=== PATIENT | female | born 1995 ===

== ENCOUNTER 2017-05-23 16:18 | Emergency (ER) | payer BC ==
[2017-05-23 16:46] VITALS: O2SAT 99
--- NOTE | 2017-05-23 18:13 | ED PDOC ---
HPI: Abdomen Time Seen by Provider: 05/23/17 17:53 Chief Complaint (Nursing): Abdominal Pain Chief Complaint (Provider): pelvic pain History Per: Patient History/Exam Limitations: no limitations Onset/Duration Of Symptoms: Days (2), Gradual Outside of [place] travel?: No Current Symptoms Are (Timing): Still Present Severity: Mild Location Of Pain/Discomfort: Suprapubic, Other (pelvic) Quality Of Discomfort: Cramping Associated Symptoms: Urinary Symptoms. denies: Nausea, Vomiting, Diarrhea, Loss Of Appetite Exacerbating Factors: None Alleviating Factors: None Last Bowel Movement: Today Additional Complaint(s): 21yo female c/o crampy pelvic pain bilateral and suprapubic associated with pressure with urination and clear vaginal discharge. Has Mirena IUD, no menses x2-3 years, denies fever, back pain, weakness, concern for STDs or pain with sexual intercourse. 3yrs ago Past Medical History Reviewed: Historical Data, Nursing Documentation, Vital Signs Vital Signs: Last Vital Signs Temp 98.0 F 05/24/17 00:58 Pulse 77 05/24/17 00:58 Resp 16 05/24/17 00:58 BP 109/65 05/24/17 00:58 Pulse Ox 99 05/24/17 02:17 - Medical History PMH: No Chronic Diseases - Surgical History Surgical History: No Surg Hx - Family History Family History: States: Unknown Family Hx - Living Arrangements Living Arrangements: With Family - Allergies Allergies/Adverse Reactions: Allergies Allergy/AdvReac Type Severity Reaction Status Date / Time No Known Allergies Allergy Verified 05/23/17 16:41 Review of Systems Constitutional: Negative for: Fever, Chills ENT: Negative for: Throat Pain Cardiovascular: Negative for: Chest Pain, Palpitations Respiratory: Negative for: Cough, Shortness of Breath Gastrointestinal: Negative for: Nausea, Vomiting, Constipation, Rectal Pain Genitourinary Female: Positive for: Pelvic Pain. Negative for: Dysuria Musculoskeletal: Negative for: Neck Pain, Back Pain, Leg Pain Skin: Negative for: Rash, Lesions, Jaundice Neurological: Negative for: Weakness, Numbness, Headache Psych: Negative for: Anxiety, Depression Physical Exam - Reviewed Vital Signs Reviewed: Yes - Physical Exam Appears: Positive for: Well, Non-toxic Head Exam: Positive for: ATRAUMATIC Eye Exam: Negative for: Periorbital swelling Cardiovascular/Chest: Negative for: Bradycardia, Tachycardia Respiratory: Negative for: Decreased Breath Sounds Gastrointestinal/Abdominal: Positive for: Tenderness (mild b/l pelvic tenderness ). Negative for: Guarding, Rebound Extremity: Negative for: Tenderness, Deformity Neurologic/Psych: Positive for: Alert, Oriented. Negative for: Motor/Sensory Deficits - Laboratory Results Result Diagrams: 05/23/17 23:56 05/23/17 18:21 Urine POC: Negative Urine dip results: Positive for: Blood (TR). Negative for: Leukocyte Esterase - ECG O2 Sat by Pulse Oximetry: 99 Medical Decision Making Medical Decision Making: workup for pelvic pain initiated UCG neg obtain bloodwork and US pelvis r/o torsion or free fluid labs reviewed chem unremarkable Disposition - Clinical Impression Clinical Impression: Pelvic pain, Hemorrhagic cyst of ovary - Patient ED Disposition Is Patient to be Admitted: Transfer of Care Counseled Patient/Family Regarding: Studies Performed - Disposition Disposition: Transfer of Care Disposition Time: 19:00 Condition: STABLE Additional Instructions: Follow up with your Revolving Inventory Clerk in 1-2 days Abstain from sexual intercourse until Rn Embedded advises otherwise Take Tylenol as needed for pain Return for any worsening in your pain or condition Instructions: Ovarian Cysts Forms: [employer] (Danish), [facility] ED School/Work Excuse Print Language: ALBANIAN Patient Signed Over To: Jonathan Esquivel Handoff Comments: pending US and CBC, dispo/pelvic/re-eval
[2017-05-23 18:38] LABS: BASO # 0.1 K/uL (0.0-0.2); BASO % 0.5 % (0.0-2.0); EOS # 0.3 K/uL (0.0-0.7); EOS % 2.8 % (0.0-4.0); HEMOGLOBIN 13.2 g/dL (12.0-16.0); LYMPH # 2.8 K/uL (1.0-4.3); LYMPH % 22.7 % (20.0-40.0); MEAN CELL VOLUME 86.9 fl (81.0-99.0); MEAN CORPUSCULAR HEMOGLOBIN 28.7 pg (27.0-31.0); MEAN PLATELET VOLUME 9.5 fl (7.2-11.7); MONO # 0.6 K/uL (0.0-0.8); MONO % 5.1 % (0.0-10.0); NEUT # 8.4 K/uL (1.8-7.0); NEUT % 68.9 % (50.0-75.0); NRBC % 0.3 % (0.0-0.0); RBC 4.61 Mil/uL (3.80-5.20); RED CELL DISTRIBUTION WIDTH 12.9 % (11.5-14.5); WHITE BLOOD COUNT 12.3 K/uL (4.8-10.8)
[2017-05-23 18:45] LABS: ALB/GLOB RATIO 1.3 (1.0-2.1); ALBUMIN 4.5 g/dL (3.5-5.0); ALT/SGPT 21 U/L (9-52); AST/SGOT 18 U/L (14-36); BLOOD UREA NITROGEN 15 mg/dl (7-17); CALCIUM 9.5 mg/dL (8.4-10.2); GFR AFRICAN-AMERICAN > 60; GFR NON-AFRICAN AMERICAN > 60
--- NOTE | 2017-05-23 20:16 | ED PDOC ---
- Laboratory Results Result Diagrams: 05/23/17 23:56 05/23/17 18:21 Urine POC: Negative - ECG O2 Sat by Pulse Oximetry: 99 (RA) Pulse Ox Interpretation: Normal Medical Decision Making Medical Decision Making: Time: 19:00 Patient signed out to me by Dr. Pinon pending labs and ultrasound. Pelvic exam presented traces of white discharge. IUD intact, no cervical motion tenderness, and no bleeding. Pelvic exam was performed by HINA Hayward. --22:51 EXAM: US Pelvis Complete, Transabdominal US Pelvis, Transvaginal US Duplex Arterial/Venous of the Pelvis, Complete EXAM DATE/TIME: 05/23/2017 6:06 PM CLINICAL HISTORY: 21 years old, female; Pain; Pelvic pain; there are an IUD, LMP 03/07/15, irregular cycles; negative urine test TECHNIQUE: Real-time transabdominal and transvaginal pelvic ultrasound (complete) with image documentation. Transvaginal imaging was used for better evaluation of the endometrium and adnexa. Real-time duplex ultrasound scan of the arterial and venous flow of the pelvis with color Doppler flow and spectral waveform analysis. COMPARISON: There are no prior studies for comparison. FINDINGS: Uterus/cervix: Uterus is in anteflexed. The uterus measures approximately 8.3 x 3.5 x 4.7 cm. there is shadowing from an IUD. IUD limits evaluation of the endometrium. Visualized portions the endometrium measures approximately 8.5 mm in width. Right ovary: Right ovary measures approximately 3.1 x 1.5 x 2.8 cm. There are multiple small follicles. There is intraovarian blood flow. Left ovary: There is enlargement of the left ovary/left adnexa. Left ovary measures approximately 6 x 4.2 x 4.6 cm. there is an echogenic mass in the substance of the ovary, 2.5 x 2.4 cm.. There are multiple complex cystic areas. There is a 3.7 x 3.1 x 4 cm complex/hemorrhagic cyst. There is flow in the left ovary. Free fluid: There is a large amount of echogenic fluid in the cul-de-sac and pelvis. Bladder: Bladder is partially distended. IMPRESSION: Hemoperitoneum; enlarged left ovary with complex masses suggesting dermoid; hemorrhagic left ovarian cyst; normal-sized uterus with IUD; unremarkable right ovary --23:06 [facility] bilingual sales consultant, who will consult on the case. 00:40 Patient was evaluated for Dr. Staples and requested a repeat hemoglobin, which came back normal at 12.1. Finding was discussed with Dr. Staples and she feels that the patient is stable for discharge home, with instructions to follow up with the patient's OBGYN. Provider has given return precautions. Diagnosis: hemorrhagic ovarian cyst Scribe Attestation: Documented by Thomas Dalton, acting as a scribe for Jonathan Esquivel MD Provider Scribe Attestation: All medical record entries made by the Scribe were at my direction and personally dictated by me. I have reviewed the chart and agree that the record accurately reflects my personal performance of the history, physical exam, medical decision making, and the department course for this patient. I have also personally directed, reviewed, and agree with the discharge instructions and disposition. Disposition - Clinical Impression Clinical Impression: Pelvic pain, Hemorrhagic cyst of ovary - POA Present On Arrival: None - Disposition Disposition: Routine/Home Disposition Time: 00:41 Condition: STABLE Additional Instructions: Follow up with your System Dispatcher in 1-2 days Abstain from sexual intercourse until Acting Section Chief advises otherwise Take Tylenol as needed for pain Return for any worsening in your pain or condition Instructions: Ovarian Cysts Forms: [employer] (Ghanaian), [facility] ED School/Work Excuse Print Language: TRINIDADIAN
[2017-05-23 22:21] LABS: SQUAMOUS EPITHIAL 1 /hpf (0-5); URINE BILIRUBIN NEGATIVE (NEGATIVE); URINE BLOOD NEGATIVE (NEGATIVE); URINE CLARITY CLEAR (Clear); URINE COLOR STRAW (YELLOW); URINE GLUCOSE (UA) NEG (Normal); URINE LEUKOCYTE ESTERASE NEG Leu/uL (Negative); URINE PROTEIN NEGATIVE (NEGATIVE); URINE UROBILINOGEN 0.2-1.0 mg/dL (0.2-1.0)
--- NOTE | 2017-05-23 22:51 | US ---
EXAM: US Pelvis Complete, Transabdominal US Pelvis, Transvaginal US Duplex Arterial/Venous of the Pelvis, Complete EXAM DATE/TIME: 05/23/2017 6:06 PM CLINICAL HISTORY: 21 years old, female; Pain; Pelvic pain; there are an IUD, LMP 03/07/15, irregular cycles; negative urine test TECHNIQUE: Real-time transabdominal and transvaginal pelvic ultrasound (complete) with image documentation. Transvaginal imaging was used for better evaluation of the endometrium and adnexa. Real-time duplex ultrasound scan of the arterial and venous flow of the pelvis with color Doppler flow and spectral waveform analysis. COMPARISON: There are no prior studies for comparison. FINDINGS: Uterus/cervix: Uterus is in anteflexed. The uterus measures approximately 8.3 x 3.5 x 4.7 cm. there is shadowing from an IUD. IUD limits evaluation of the endometrium. Visualized portions the endometrium measures approximately 8.5 mm in width. Right ovary: Right ovary measures approximately 3.1 x 1.5 x 2.8 cm. There are multiple small follicles. There is intraovarian blood flow. Left ovary: There is enlargement of the left ovary/left adnexa. Left ovary measures approximately 6 x 4.2 x 4.6 cm. there is an echogenic mass in the substance of the ovary, 2.5 x 2.4 cm.. There are multiple complex cystic areas. There is a 3.7 x 3.1 x 4 cm complex/hemorrhagic cyst. There is flow in the left ovary. Free fluid: There is a large amount of echogenic fluid in the cul-de-sac and pelvis. Bladder: Bladder is partially distended. IMPRESSION: Hemoperitoneum; enlarged left ovary with complex masses suggesting dermoid; hemorrhagic left ovarian cyst; normal-sized uterus with IUD; unremarkable right ovary
[2017-05-24] LABS: BASO # 0.1 K/uL (0.0-0.2); BASO % 0.7 % (0.0-2.0); EOS # 0.3 K/uL (0.0-0.7); EOS % 2.8 % (0.0-4.0); HEMOGLOBIN 12.1 g/dL (12.0-16.0); LYMPH # 3.3 K/uL (1.0-4.3); LYMPH % 27.6 % (20.0-40.0); MEAN CELL VOLUME 86.8 fl (81.0-99.0); MEAN CORPUSCULAR HEMOGLOBIN 28.8 pg (27.0-31.0); MEAN CORPUSCULAR HGB CONC 33.1 g/dL (33.0-37.0); MEAN PLATELET VOLUME 9.2 fl (7.2-11.7); MONO # 0.7 K/uL (0.0-0.8); MONO % 5.5 % (0.0-10.0); NEUT # 7.7 K/uL (1.8-7.0); NEUT % 63.4 % (50.0-75.0); RBC 4.2 Mil/uL (3.80-5.20); RED CELL DISTRIBUTION WIDTH 12.6 % (11.5-14.5); WHITE BLOOD COUNT 12.1 K/uL (4.8-10.8)
--- NOTE | 2017-05-24 00:24 | ED PDOC ---
HPI: General Adult Time Seen by Provider: 05/23/17 17:53 Chief Complaint (Nursing): Abdominal Pain Additional Complaint(s): FRIT BURNER CONSULT NOTE: 21 y/o F presented to ED c/o pelvic pain. Pt reports pain is cramping, began yesterday at 8 pm as tolerable, was able to sleep and decided to come to ED because pain became 6/10 intensity. Pt has an IUD in place but assures her LMP was 3 weeks ago because she can feel some pre-menstrual symptoms. Pt reports having intersourse yesterday before onset of pain. No urinary complaints, vaginal bleeding or vagina discharge reported. All systems reviewed and negative except as above. OB Hx: , no Hx of abortions. Bill Hiker Hx: IUD in place. NKDA Meds: None PMHx: denied PSHx: Breast Augmentation. FHx: NC SHx: denies tobacco, alcohol or rec drugs. ED Course: --CBC, CMP and Urinalysis was unremarkable. --Pelvis TVUS showed hemoperitoneum, enlarged L ovary with complex masses suggesting dermoid; hemorrhagic L ovarian cyst; normal-sized uterus with IUD; unremarkable R ovary. --Speculum exam performed by ED staff, unremarkable. Past Medical History Vital Signs: Last Vital Signs Temp 98.0 F 05/24/17 00:58 Pulse 77 05/24/17 00:58 Resp 16 05/24/17 00:58 BP 109/65 05/24/17 00:58 Pulse Ox 99 05/24/17 01:01 - Medical History PMH: No Chronic Diseases - Surgical History Surgical History: No Surg Hx - Family History Family History: States: Unknown Family Hx - Allergies Allergies/Adverse Reactions: Allergies Allergy/AdvReac Type Severity Reaction Status Date / Time No Known Allergies Allergy Verified 05/23/17 16:41 Review of Systems Constitutional: Negative for: Fever, Chills ENT: Negative for: Nose Congestion Cardiovascular: Negative for: Chest Pain, Palpitations Respiratory: Negative for: Cough, Shortness of Breath Gastrointestinal: Negative for: Nausea, Vomiting Genitourinary Female: Positive for: Pelvic Pain. Negative for: Dysuria, Frequency, Incontinence, Vaginal Discharge, Vaginal Bleeding Psych: Negative for: Anxiety, Depression Physical Exam - Physical Exam Appears: Positive for: Well, No Acute Distress Head Exam: Positive for: ATRAUMATIC, NORMAL INSPECTION Neck: Positive for: Normal, Painless ROM, Supple Respiratory: Negative for: Accessory Muscle Use, Respiratory Distress Gastrointestinal/Abdominal: Positive for: Soft. Negative for: Tenderness, Organomegaly Pelvic Exam: Positive for: Other (Pelvic exam: No cervical motion tenderness, no traces of bleeding appreciated, IUD strings present, external genitalia normal mature female. ). Negative for: Blood, Discharge Neurologic/Psych: Positive for: Alert, Oriented - Laboratory Results Result Diagrams: 05/23/17 23:56 05/23/17 18:21 Urine POC: Negative - ECG O2 Sat by Pulse Oximetry: 99 (RA) Medical Decision Making Medical Decision Making: A/P: 21 y/o F with pelvic pain, with hemorrhagic L ovarian cyst and dermoid mass. --Repeated CBC was unremarkable, Vital signs remained stable and WNL. --Pt educated and counseled on the surgical approach for dermoid cyst. --Pt instructed to f/u with her OBGYN. Appointment set for 06/07/17. Pt advised to see her OBGYN sooner if aggravating pain, fever, N/V. --ER precautions discussed. --Pt advised to rest for the next 2 days. Excuse for work provided to patient. Case discussed with Dr Staples, OB epic application coordinator. Vitaliy PGY-1. Disposition - Clinical Impression Clinical Impression: Pelvic pain, Hemorrhagic cyst of ovary - Disposition Disposition: Transfer of Care Disposition Time: 19:00 Condition: STABLE Additional Instructions: Follow up with your Cleaning Attendant in 1-2 days Abstain from sexual intercourse until Bill Hiker advises otherwise Take Tylenol as needed for pain Return for any worsening in your pain or condition Instructions: Ovarian Cysts Forms: [employer] (Uzbek), [facility] ED School/Work Excuse Print Language: MAORI
[2017-05-24 00:30] VITALS: RESP 16
[2017-05-24 00:59] VITALS: BP 109/65; PULSE 77; TEMP 98
== END 2017-05-24 01:00 | disposition home or self-care (01) ==
LOC: H.ER 16:18
DX: N83.202 Unspecified ovarian cyst, left side (principal); Z97.5 Presence of (intrauterine) contraceptive device
CPT/HCPCS: 76830; 76856; 80053; 81003; 81025; 85025; 87070; 87491; 87591; 96374; 99282; J1885

== ENCOUNTER 2018-07-26 06:46 | Day surgery (SDC) | payer OTHER ==
[2018-07-26 06:56] VITALS: BMI 19.7
[2018-07-26 07:04] VITALS: O2SAT 100
[2018-07-26] MEDS ORDERED: Lactated Ringer's 1,000 ML IV ONE (07:18)
[2018-07-26] MEDS ORDERED: ePHEDrine 50 mg/ml Inj ONE (07:26)
[2018-07-26] MEDS ORDERED: Propofol 10 mg/ml Inj (20 ML) ONE (07:26)
[2018-07-26] MEDS ORDERED: Lidocaine 4% (Laryng-O-Jet) Kit MM ONE (07:27)
[2018-07-26] MEDS ORDERED: Succinylcholine 200 mg/10 ml Inj IV ONE (07:27)
[2018-07-26] MEDS ORDERED: Midazolam 2 MG/2 ML VIAL ONE (07:27)
[2018-07-26] MEDS ORDERED: Dexamethasone 4 mg/1 ml ONE (08:28)
[2018-07-26] MEDS ORDERED: HYDROmorphone 0.5 mg/0.5 ml ISec IVP PRN (09:02)
[2018-07-26] MEDS ORDERED: DiphenhydrAMINE 50 mg/ml Inj IVP PRN (09:02)
[2018-07-26] MEDS ORDERED: Lactated Ringer's 1,000 ML IV SCH (09:15)
[2018-07-26 09:32] VITALS: RESP 20
--- NOTE | 2018-07-26 10:10 | CP.SDSHP ---
Same Day Surgery H & P - Allergies Allergies: Allergies No Known Allergies Allergy (Verified 07/26/18 06:56) - Physical Exam Vital Signs: Vital Signs 07/26/18 07/26/18 07/26/18 07:02 07:06 08:59 Temperature 97.9 F 96.9 F L Pulse Rate 72 72 87 Respiratory 18 18 Rate Blood Pressure 106/61 144/96 H O2 Sat by Pulse 100 100 Oximetry 07/26/18 07/26/18 07/26/18 09:15 09:30 09:45 Temperature 96.8 F L 96.9 F L 96.9 F L Pulse Rate 92 H 95 H 101 H Respiratory 18 20 20 Rate Blood Pressure 140/77 127/90 127/92 H O2 Sat by Pulse 100 100 100 Oximetry Short Stay Discharge - Short Stay Discharge Admitting Diagnosis/Reason for Visit: T83.32XD Disposition: HOME/ ROUTINE Referrals: Melissa Grimes MD [Primary Care Provider] - Progress Note/Discharge Note with Instructions: Patient doing well cleared for discharge F/u in one week
[2018-07-26 12:12] VITALS: BP 115/65; PULSE 101; TEMP 97.5
--- NOTE | 2018-07-26 20:07 | OP ---
PROCEDURE DATE: 07/26/2018 PREOPERATIVE DIAGNOSIS: Retained intrauterine device. The patient was unable to tolerate the procedure in the office, the strings were not visualized. POSTOPERATIVE DIAGNOSIS: Retained intrauterine device. The patient was unable to tolerate the procedure in the office, the strings were not visualized. OPERATION PERFORMED: Operative hysteroscopy, removal of intrauterine device with hysteroscopic forceps and insertion of intrauterine device. SURGEON: Mimi Yan MD ANESTHESIA: General. ANESTHESIA ADMINISTERED BY: Valarie Diaz MD ESTIMATED BLOOD LOSS: Minimal. URINE OUTPUT: The patient was straight catheterized prior to starting the procedure. FLUIDS: The patient received approximately 400 mL of D5 LR intraoperatively. HYSTEROSCOPIC FINDINGS: IUD was noted to be in the uterine cavity near the right cornua. Both the ostia were visualized. No fibroids or polyps were noted in the cavity. DESCRIPTION OF PROCEDURE: After informed consent was obtained, the patient was taken to the operating room where she was given general anesthesia. She was then prepped and draped in a normal sterile fashion. A weighted speculum was inserted into the vagina. The cervix was visualized and grasped with a single-tooth tenaculum. The cervix was then gently dilated, the hysteroscope was inserted into the uterine cavity, the IUD was identified. The hysteroscopic forceps were introduced into the uterine cavity and the IUD was grasped and extracted. A Mirena IUD was then inserted into the uterine cavity. The strings were trimmed. The tenaculum site was noted to be hemostatic and the patient tolerated the procedure well. She was taken to the recovery room in awake and stable condition. Mimi Yan MD
== END 2018-07-26 12:05 | disposition home or self-care (01) ==
LOC: H.OPSURG 06:46
PROVIDERS: ATTEND Obstetrics & Gynecology Gynecology
DX: Z30.433 Encounter for removal and reinsertion of intrauterine contraceptive device (principal)
CPT/HCPCS: 58300; 58562; 88304; J0330; J1100; J1885; J2001; J2250; J2405; J2704; J2765; J3010; J7120